=== PATIENT | female | born 1935 | race Caucasian/White ===

== ENCOUNTER → 2020-10-30 13:34 | Outpatient (BNVA) | payer MEDICARE, MEDICAID, SELFPAY | PROVIDERS: Family Provider Internal Medicine; PCP Nurse Practitioner; Visit Provider Nurse Practitioner | DX: E11.65 Type 2 diabetes mellitus with hyperglycemia (principal); Z79.4 Long term (current) use of insulin | CPT/HCPCS: 80053; 83036 ==

== ENCOUNTER → 2021-01-30 15:37 | Outpatient (BNVA) | payer MEDICARE, MEDICAID, SELFPAY | PROVIDERS: Family Provider Internal Medicine; PCP Nurse Practitioner; Visit Provider Nurse Practitioner | DX: E11.65 Type 2 diabetes mellitus with hyperglycemia (principal); Z79.4 Long term (current) use of insulin; E55.9 Vitamin D deficiency, unspecified; E78.2 Mixed hyperlipidemia | CPT/HCPCS: 80053; 80061; 82306; 83036 ==

== ENCOUNTER → 2021-05-22 10:50 | Outpatient (BNVA) | payer MEDICARE, OTHER, MEDICAID, SELFPAY | PROVIDERS: Family Provider Internal Medicine; PCP Nurse Practitioner; Visit Provider Nurse Practitioner | DX: E11.65 Type 2 diabetes mellitus with hyperglycemia (principal); Z79.4 Long term (current) use of insulin; E55.9 Vitamin D deficiency, unspecified | CPT/HCPCS: 80053; 83036 ==

== ENCOUNTER → 2021-08-07 12:18 | Outpatient (BNVA) | payer MEDICARE, OTHER, MEDICAID, SELFPAY | PROVIDERS: Family Provider Internal Medicine; PCP Nurse Practitioner; Visit Provider Nurse Practitioner | DX: E11.65 Type 2 diabetes mellitus with hyperglycemia (principal); Z79.4 Long term (current) use of insulin; I10 Essential (primary) hypertension; E55.9 Vitamin D deficiency, unspecified | CPT/HCPCS: 80053; 83036 ==

== ENCOUNTER → 2021-08-19 14:12 | Outpatient (BNVA) | payer MEDICARE, OTHER, MEDICAID, SELFPAY | PROVIDERS: Family Provider Internal Medicine; PCP Nurse Practitioner; Visit Provider Nurse Practitioner | DX: R05.9 Cough, unspecified (principal) | CPT/HCPCS: 71046; 85025 ==

== ENCOUNTER 2021-09-10 13:25 | Outpatient (CLI) | payer MEDICARE, OTHER, MEDICAID, SELFPAY ==
[2021-09-10 13:53] VITALS: BP 160/82; PULSE 83; RESP 22; TEMP 36.2; O2SAT 98; BMI 34.9
[2021-09-10 14:15] VITALS: BP 153/74; PULSE 80; RESP 22; TEMP 36.4; O2SAT 93
[2021-09-10 15:13] VITALS: BP 161/82; PULSE 79; RESP 20; TEMP 36.3; O2SAT 98
== END 2021-09-10 13:26 | disposition home or self-care (01) ==
PROVIDERS: PCP Nurse Practitioner; Visit Provider Nurse Practitioner
DX: U07.1 COVID-19 (principal)
CPT/HCPCS: 96365

== ENCOUNTER → 2022-01-15 12:03 | Outpatient (BNVA) | payer MEDICARE, OTHER, MEDICAID, SELFPAY | PROVIDERS: PCP Nurse Practitioner; Visit Provider Nurse Practitioner | DX: E11.65 Type 2 diabetes mellitus with hyperglycemia (principal); Z79.4 Long term (current) use of insulin; E55.9 Vitamin D deficiency, unspecified | CPT/HCPCS: 80053; 80061; 82306; 83036; 84443; 85025 ==

== ENCOUNTER → 2022-06-11 08:27 | Outpatient (BNVA) | payer MEDICARE, OTHER, MEDICAID, SELFPAY | PROVIDERS: PCP Nurse Practitioner; Visit Provider Nurse Practitioner | DX: E11.65 Type 2 diabetes mellitus with hyperglycemia (principal); Z79.4 Long term (current) use of insulin | CPT/HCPCS: 80053; 83036 ==

== ENCOUNTER → 2022-12-31 08:49 | Outpatient (BNVA) | payer MEDICARE, OTHER, MEDICAID, SELFPAY | PROVIDERS: PCP Nurse Practitioner; Visit Provider Nurse Practitioner | DX: E11.65 Type 2 diabetes mellitus with hyperglycemia (principal); Z79.4 Long term (current) use of insulin | CPT/HCPCS: 80053; 80061; 83036; 84443; 84550; 85025 ==

== ENCOUNTER → 2023-01-01 10:40 | Outpatient (BNVA) | payer MEDICARE, OTHER, MEDICAID, SELFPAY | PROVIDERS: PCP Nurse Practitioner; Visit Provider Nurse Practitioner | DX: E11.65 Type 2 diabetes mellitus with hyperglycemia (principal); Z79.4 Long term (current) use of insulin | CPT/HCPCS: 81000; 82043 ==

== ENCOUNTER → 2023-03-10 11:19 | Outpatient (BNVA) | payer MEDICARE, OTHER, MEDICAID, SELFPAY | PROVIDERS: PCP Nurse Practitioner; Visit Provider Nurse Practitioner | DX: E11.65 Type 2 diabetes mellitus with hyperglycemia (principal); Z79.4 Long term (current) use of insulin | CPT/HCPCS: 81000 ==

== ENCOUNTER 2023-08-11 18:43 | Emergency (ER) | payer MEDICARE, OTHER, MEDICAID, SELFPAY ==
[2023-08-11 19:00] VITALS: BP 151/79; PULSE 68; RESP 18; TEMP 36.4; O2SAT 91; BMI 30.1
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
[2023-08-11 19:07] VITALS: BP 151/79; PULSE 68; RESP 18; TEMP 36.4; O2SAT 91
--- NOTE | 2023-08-11 19:07 | ED_ITS ---
HPI - Fall General: Chief Complaint: Wound/Laceration Stated Complaint: Fall Facial injury Time Seen by Provider: 08/11/23 18:47 Source: EMS Mode of arrival: EMS Limitations: altered mental status (Unable to state current year; this is normal for patient) History of Present Illness: Patient is a 87-year-old female who presents to the emergency room via EMS for a fall. Patient resides at [facility] in [facility]. EMS states that patient was ambulating to the restroom and was trying to remove bottom clothing, and fell face first inside the bathroom. This was a witnessed fall and patient was utilizing walker at this time. Patient has a laceration to her right lower lip. Patient did fall face first but denies loss of consciousness. Patient reports facial and right hip pain. Denies any other complaints at this time. 5/10 pain on pain scale. MD complaint: fall Onset (ago): hour(s) (1) Fall from: standing Fall witnessed: yes, by living facility staff Place fall occurred: halfway/SNF Associated symptoms-after fall: Denies abdominal pain, chest pain, headache(s), neck pain or vertigo Review of Systems Const: Denies: fever(s) or chills Eyes: Denies: change in vision or blurry vision ENMT: Denies: throat pain or uvular edema Card: Denies: chest pain or palpitations Resp: Denies: dyspnea or productive cough GI: Denies: abdominal pain, nausea or vomiting : Denies: flank pain or difficulty voiding Musc: Reports: extremity pain (Right hip); Denies: neck pain or back pain Skin/Breast: Reports: other (Right lip pain) Neuro: Denies: headache(s), dizziness or vertigo [facility] ED PFSH: Medical History Anxiety Chronic constipation COVID-19 Diabetes mellitus with hyperglycemia, with long-term current use of insulin 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 DNR no code (do not resuscitate) Sign consent on file at [facility] assisted living Environmental and seasonal allergies Essential (primary) hypertension GERD (gastroesophageal reflux disease) History of CVA with residual deficit SARWAT (iron deficiency anemia) Lives in assisted living facility Mixed hyperlipidemia Mixed stress and urge urinary incontinence Vitamin B12 deficiency (dietary) anemia Vitamin D deficiency Surgical History H/O left wrist surgery History of hip surgery Family History Other Diabetes Hypertension Social History Smoking and tobacco status: never smoked Second hand smoke exposure: No Smoking risk assessment/counseling performed?: No Alcohol intake: never Desire information about alcohol rehabilitation?: No Counseling given: No Substance/Drug Use: never Desire information about substance/drug rehabilitation?: No Counseling given: No Adopted: No Caregiver/support person: Yes Lives independently: No Household members: other Housing: Assisted Living Facility Marital status: Number of children: 6 service: No Current occupational status: retired Pets and animals: No Do you think of yourself as: Straight/Heterosexual Current gender identity: Female Physical Exam Const: COMMON NORMALS: no acute distress, patient oriented x3 and alert HENMT: COMMON NORMALS: normocephalic and Normal external nose present HEAD & SCALP: normal to inspection and normocephalic FACE & SINUS: Facial tenderness on exam of face and sinuses (Right lower lip laceration) on the right NOSE: Normal external nose present THROAT: posterior oropharynx normal; no uvular edema Eye: COMMON NORMALS: Equal, round and reactive pupils present and EOMs intact bilaterally GENERAL EYE: appearance normal, both eyes and all related structures PUPIL: Yes Equal, round and reactive pupils present Neck/C-Spine: COMMON NORMALS: full ROM and no JVD Lymph: LYMPHATIC: no lymphadenopathy noted Chest: CHEST: Yes Symmetrical chest wall rise Resp: COMMON NORMALS: normal respiratory effort and clear to auscultation bilaterally EFFORT & INSPECTION: Yes symmetric chest movement AUSCULTATION: clear to auscultation bilaterally Cardio: COMMON NORMALS: no JVD and S1 normal heart sound present HEART SOUNDS: S1 normal heart sound present GI: COMMON NORMALS: Normal to inspection, nondistended, normoactive bowel sounds present : COMMON NORMALS: Yes no CVA tenderness BLADDER/KIDNEY EXAM: Yes no CVA tenderness Back/Pelvis: COMMON NORMALS: no CVA tenderness Extremity: RIGHT LOWER EXTREMITY: Yes upper leg (Right hip pain) Right upper leg: Yes palpation Neuro: COMMON NORMALS: patient oriented x3 SENSORIUM/ORIENTATION: Yes alert Procedures Laceration Laceration 1: Site: face Size (cm): 2 Description: linear Depth: simple, single layer Local Anesthetic: lidocaine 1% Amount of anesthesia used (mL): 5 Pre-repair: wound explored and irrigated extensively Skin layer closed with: nylon Size (cm): 6-0 Number of sutures: 2 Technique: simple, interrupted Course Vital Signs: Vital signs: Vital Signs Temperature 97.5 F L 08/11/23 19:07 Pulse Rate 68 08/11/23 19:07 Respiratory Rate 18 08/11/23 19:07 Blood Pressure 151/79 08/11/23 19:07 Pulse Oximetry 91 08/11/23 19:07 Oxygen Delivery Me thod Room Air 08/11/23 19:07 MDM - Fall Medical Decision Making Patient presents for facial laceration after a fall imaging here is all normal did repair with sutures she is have suture removal in 7 days she is stable for discharge. Medical Records I reviewed the patient's medical records. Lab Data Radiology Impressions Cervical Spine CT 08/11/23 19:03 IMPRESSION: 1. No acute cervical spine fracture. 2. Stable chronic T3 compression fracture. 3. Degenerative changes as described. Head CT 08/11/23 19:03 IMPRESSION: 1. No fracture or intracranial hemorrhage. 2. Mild right temporoparietal scalp contusion. All radiology interpretation(s) finalized by discharge Discharge Plan Discharge Patient Disposition: Home Clinical Impression: Fall, Facial laceration Condition: Stable Prescriptions: No Action aspirin 81 mg tablet,delayed release (DR/EC) 81 mg PO DAILY atorvastatin 40 mg tablet 40 mg PO DAILY escitalopram oxalate 10 mg tablet 10 mg PO DAILY famotidine 20 mg tablet 20 mg PO DAILY levocetirizine 5 mg tablet 5 mg PO DAILY valsartan 80 mg tablet 80 mg PO DAILY hydrocortisone [Anusol-HC] 2.5 % cream with perineal applicator 1 applic ID BID PRN (Reason: hemorrhoids) Qty: 30 0RF acetaminophen 325 mg capsule 325 mg PO Q6H PRN pen needle, diabetic, safety miscellaneous bisacodyl 5 mg tablet 5 mg PO BID PRN bisacodyl 10 mg suppository 10 mg ID DAILY PRN mineral oil ID PRN (Reason: constipation) magnesium hydroxide PO PRN albuterol 90 mcg/actuation aerosol INHALATION ondansetron 4 mg tablet,disintegrating 4 mg PO Q6H Acidophilus-Pectin 75 million cell -100 mg capsule 1 cap PO DAILY dextromethorphan-guaifenesin [Diabetic Tussin DM] 10-100 mg/5 mL liquid 10 ml PO Q6H Qty: 120 0RF Rx Instructions: use this for 7 days then back to PRN tamsulosin [Flomax] 0.4 mg capsule 0.4 mg PO .at bedtime Qty: 30 2RF Rx Instructions: Please HOLD meal time insulin NovoLog on EMR multivitamin [One Daily Multivitamin] Tablet 1 tab PO QAM Qty: 30 5RF Rx Instructions: Stop vitamin D, vitamin B12 and magnesium on EMR. Use a multivitamin that includes vitamin D, vitamin B-12 Jardiance 10 mg tablet 10 mg PO QAM Qty: 30 2RF Tresiba FlexTouch U-100 100 unit/mL (3 mL) insulin pen 55 unit SUBCUT .at noon Qty: 15 0RF Rx Instructions: dose decrease (DME) FreeStyle Tracy 2 Sensor Kit See Rx Instructions .Route Qty: 2 11RF Rx Instructions: change every 14 days insulin aspart U-100 [Novolog FlexPen U-100 Insulin] 100 unit/mL (3 mL) insulin pen 3 unit SUBCUT TID Qty: 15 0RF Hold Instructions: Improved glucose level Rx Instructions: use only if needed for glucose >200 (DME) FreeStyle Tracy 2 [place] Misc See Rx Instructions .Route Qty: 1 0RF Rx Instructions: As directed Discharge Orders: Discharge ED (Routine); Ordered 08/11/23 Ordered By: Chitra Thornton Referrals: Laura Esparza, [facility] [Primary Care Provider] - 4-7 days Discharge Diet: Advance as tolerated Discharge Activity: Resume usual activity Patient Instructions: Facial Laceration (ED) Activity Restrictions/Additional Instructions: suture removal in 7 days Coding Level of Care Code ED [place] [facility] [place] for [facility] Analisa
[2023-08-11] MEDS: lidocaine 1% INJ 10 mL (per mL) 20 ML INJECTION (21:15)
[2023-08-11] MEDS: ondansetron 2 mg/ML SDV 2 mL 4 MG IVP (21:22)
[2023-08-11 21:29] LABS: Glucose Point of Care 213 mg/dL (70-110)
[2023-08-11 21:30] VITALS: BP 190/95; PULSE 88; RESP 18; O2SAT 91
== END 2023-08-11 23:20 | disposition home or self-care (01) ==
PROVIDERS: Emergency Provider Emergency Medicine; PCP Nurse Practitioner
DX: S01.511A Laceration without foreign body of lip, initial encounter (principal); Z79.82 Long term (current) use of aspirin; Z79.4 Long term (current) use of insulin; E11.9 Type 2 diabetes mellitus without complications; I10 Essential (primary) hypertension; Z86.73 Personal history of transient ischemic attack (TIA), and cerebral infarction without residual deficits; E78.2 Mixed hyperlipidemia; W01.0XXA Fall on same level from slipping, tripping and stumbling without subsequent striking against object, initial encounter; Y92.121 Bathroom in nursing home as the place of occurrence of the external cause
CPT/HCPCS: 12011; 36416; 70450; 72125; 73502; 82962; 96374; 99285; J2405